=== PATIENT | female | born 1975 | race African-American/Black ===

== ENCOUNTER 2023-09-30 02:49 | Emergency (ER) | payer SELFPAY ==
[2023-09-30] MEDS ORDERED: Ketorolac 15 MG/ML SDV IM ONE (04:09)
[2023-09-30] MEDS ORDERED: Ketorolac 60 MG/2 ML SDV IM ONE (04:55)
== END 2023-09-30 05:40 | disposition home or self-care (01) ==
LOC: JD.ED 02:49
DX: R07.89 Other chest pain (principal); E07.89 Other specified disorders of thyroid
CPT/HCPCS: 72128; 96372; 99283; J1885